=== PATIENT | male | born 1990 | race Caucasian/White ===

== ENCOUNTER → 2022-01-19 | Outpatient (CLI) | payer OTHER | LOC: EMI 15:55 | DX: S83.511A Sprain of anterior cruciate ligament of right knee, initial encounter (principal); S83.411A Sprain of medial collateral ligament of right knee, initial encounter; M23.51 Chronic instability of knee, right knee; S83.104A Unspecified dislocation of right knee, initial encounter; R93.6 Abnormal findings on diagnostic imaging of limbs; M25.461 Effusion, right knee; X58.XXXA Exposure to other specified factors, initial encounter | CPT/HCPCS: 73721 ==

== ENCOUNTER → 2022-01-25 | Outpatient (CLI) | payer OTHER | LOC: KOH-I 11:30 | DX: S83.511A Sprain of anterior cruciate ligament of right knee, initial encounter (principal); S82.91XA Unspecified fracture of right lower leg, initial encounter for closed fracture; M25.461 Effusion, right knee; X58.XXXA Exposure to other specified factors, initial encounter | CPT/HCPCS: 73700 ==